=== PATIENT | male | born 1985 | race Caucasian/White ===

== ENCOUNTER 2016-09-22 02:29 | Emergency (ER) | payer OTHER ==
[2016-09-22 02:48] VITALS: BP 127/85
[2016-09-22] MEDS ORDERED: SULFAMETHOXAZOLE/TRIMETHOPRIM 800-160 MG TABLET PO ONE (03:13)
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
== END 2016-09-22 04:00 | disposition home or self-care (01) ==
LOC: ER 02:29
DX: M25.531 Pain in right wrist (principal); L53.9 Erythematous condition, unspecified; Z98.890 Other specified postprocedural states; Z87.892 Personal history of anaphylaxis; Z88.0 Allergy status to penicillin; Z88.1 Allergy status to other antibiotic agents
CPT/HCPCS: 99283

== ENCOUNTER 2016-10-11 05:37 | Day surgery (SDC) | payer OTHER ==
[~2016-10-11 05:37] MED LIST: CLINDAMYCIN 600 MG/D5W RTU 600 MG/50 ML RTUPB IV PRN; LACTATED RINGERS 1000 ML IV PRN; LIDOCAINE 0.5% INJ-PF (5 MG/ML) 50 ML SDV SUBCUT PRN
[2016-10-11] MEDS ORDERED: FENTANYL CITRATE INJ/PF 250 MCG/5 ML AMPULE ONE (06:44)
[2016-10-11] MEDS ORDERED: MIDAZOLAM 2 MG/2 ML INJ ONE (06:44)
[2016-10-11] MEDS ORDERED: DEXMEDETOMIDINE INJ 80 MCG/20 ML VIAL IV ONE (06:45)
[2016-10-11] MEDS ORDERED: PROPOFOL INJ 200 MG/20 ML VIAL IV ONE (06:45)
[2016-10-11] MEDS ORDERED: LIDOCAINE 1% INJ-PF (10 MG/ML) 30 ML SDV ONE (07:23)
[2016-10-11] MEDS ORDERED: MORPHINE SULFATE 10 MG/ML INJ IV PRN ×2 (07:34→08:22)
[2016-10-11] MEDS ORDERED: MEPERIDINE HCL/PF INJ 25 MG/1 ML DISP.SYRIN IV PRN (07:34)
[2016-10-11] MEDS ORDERED: PROMETHAZINE HCL INJ 25 MG/1 ML VIAL IV PRN ×2 (07:34)
[2016-10-11] MEDS ORDERED: FENTANYL CITRATE INJ/PF 100 MCG/2 ML AMPUL IV PRN ×3 (07:34)
[2016-10-11] MEDS ORDERED: OXYCODONE-ACETAMINOPHEN 5-325 MG TABLET PO PRN ×2 (07:34)
[2016-10-11] MEDS ORDERED: DIPHENHYDRAMINE HCL 50 MG/ML VIAL IV PRN (07:34)
[2016-10-11] MEDS ORDERED: ONDANSETRON HCL INJ/PF 4 MG/2 ML SDV IV PRN (08:22)
[2016-10-11] MEDS ORDERED: HYDROCODONE/ACETAMINOPHEN 5-325 MG TABLET PO PRN (08:22)
--- NOTE | 2016-10-11 08:23 | PDOC DISCHARGE SUMMARY ---
Discharge Summary (SDC) - Discharge Final Diagnosis: Left Wrist Midcarpal Instability Date of Surgery: 10/11/16 Discharge Date: 10/11/16 Condition: Good Treatment or Instructions: Schedule Follow Up w/ Dr. Munir Irvin @ [facility] for Surgery to be seen in 10-14 days or as scheduled [place]: [place]: [place]: Keep splint clean/dry/intact. Ice and elevate May begin wrist and finger range of motion attempting to make full fist. Stool softener of choice when on pain medication. Prescriptions: Hydrocodone/Acetaminophen [[place] 5-325 mg Tablet] 1 tab PO Q6 PRN #20 tablet PRN Reason: Discharge Diet: As Tolerated Respiratory Treatments at Home: Deep Breathing/Coughing Discharge Activity: No Lifting Over 10 Pounds, No Lifting/Push/Pulling Report the Following to Your Physician Immediately: Fever over 101 Degrees, Unusual Bleeding, Redness, Swelling, Warmth, Increased Soreness, Numbness, Tingling Sensation
--- NOTE | 2016-10-11 08:24 | Operative Report ---
Operative Report DATE OF SURGERY: 10/11/16 PREOPERATIVE DIAGNOSIS: Retained hardware left wrist POSTOPERATIVE DIAGNOSIS: Same OPERATION: Removal hardware left wrist SURGEON: BECKY CABA ANESTHESIA: LMAC COMPLICATIONS: None ESTIMATED BLOOD LOSS: Minimal PROCEDURE: Indication for above procedure 31-year-old male who presented to my office with scapholunate tear along with midcarpal instability. Patient had attempted conservative measures be discussed treatment options including operative versus nonoperative intervention. Patient ultimately underwent wrist capsulodesis with percutaneous pinning. At this point patient has shown healing and thus the pins had been retained the appropriate amount time and we discussed proceeding with pin removal. Risks and benefits were explained patient verbalized understanding consented for the procedure. Procedure In Detail: Patient was seen and evaluated in the preoperative holding area. The upper extremity was initialized and marked. Patient received 2g of Ancef IV for bacterial prophylaxis. Patient was taken back to the operative room where transferred to the operative table and placed under MAC anesthesia. Once they were adequately anesthetized a surgical team debriefing was performed ensuring all instrumentation was available, the surgical procedure was discussed with possible concerns reviewed. A local block was performed utilizing 5 mL of 1% lidocaine without epinephrine. The upper extremity was prepped with chlorhexidine and alcohol and draped in a sterile fashion. A timeout was done identifying correct patient, procedure and extremity everyone in attendance agree with this and verbalized no concerns. The extremity was exsanguinated the tourniquet and a forearm tourniquet was placed. A small incision was made along the radial aspect of the wrist at the level of the 3 inercarpal pins. Under C-arm fluoroscopy the pins were removed in their entirety. Examination under fluoroscopy demonstrated maintained alignment without catchup clunk at the metacarpal level with ulnar deviation. Tourniquet was removed. A small venous bleeder was identified and tied off proximally and distally. The wound was then closed with interrupted 4-0 nylon. Wound was dressed with Xeroform 4 x 4's and a soft dressing. Sponge counts, instrument counts, needle counts counts were correct. Patient was then awoken from anesthesia. Transferred from the operating room table to the operating room stretcher. There was no intraoperative complications patient tolerated procedure well stable to PACU. Postoperative plan: Patient will begin occupational therapy with gentle range of motion progressing to strengthening as symptoms tolerate.
[2016-10-11] MEDS ORDERED: LORAZEPAM INJ 2 MG/1 ML VIAL ONE (08:39)
[2016-10-11 11:07] VITALS: BP 114/75
[2016-10-11] MEDS ORDERED: LIDOCAINE 2% INJ-PF (20 MG/ML) 10 ML AMPUL ONE (12:39)
[2016-10-11] MEDS ORDERED: GLYCOPYRROLATE INJ 0.4 MG/2 ML VIAL ONE (12:39)
== END 2016-10-11 10:55 | disposition home or self-care (01) ==
LOC: OROUT 05:37
PROVIDERS: ATTEND Orthopaedic Surgery
PROC: 0RPP04Z Removal of Internal Fixation Device from Left Wrist Joint, Open Approach (ICD-10-PCS; principal; 2016-10-11 07:15)
DX: Z47.2 Encounter for removal of internal fixation device (principal); S63.512A Sprain of carpal joint of left wrist, initial encounter; X58.XXXA Exposure to other specified factors, initial encounter; F41.9 Anxiety disorder, unspecified; F32.9 Major depressive disorder, single episode, unspecified; Z79.899 Other long term (current) drug therapy
CPT/HCPCS: 73100; 20680; J2250; J3010; J3490 ×3; J2060; J2704; 01830

== ENCOUNTER 2018-06-04 04:01 | Emergency (ER) | payer OTHER ==
[2018-06-04] MEDS ORDERED: DEXAMETHASONE SOD PHOS INJ 10 MG/1 ML VIAL IV ONE (04:52)
[2018-06-04] MEDS ORDERED: METOCLOPRAMIDE HCL INJ/PF 10 MG/2 ML SDV IV ONE (04:52)
[2018-06-04] MEDS ORDERED: DIPHENHYDRAMINE HCL 50 MG/ML VIAL IV ONE (04:52)
[2018-06-04] MEDS ORDERED: NORMAL SALINE 1000 ML 1,000 ML IV ONE (04:52)
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
[2018-06-04] MEDS ORDERED: DIPHENHYDRAMINE HCL 50 MG/ML VIAL ONE (05:07)
[2018-06-04] MEDS ORDERED: KETOROLAC TROMETHAMINE INJ/PF 30 MG/1 ML SDV IV ONE (05:40)
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
[2018-06-04 06:51] VITALS: BP 148/84
== END 2018-06-04 06:51 | disposition home or self-care (01) ==
LOC: ER 04:01
DX: R51 Headache (principal); H53.149 Visual discomfort, unspecified; R11.0 Nausea; Z87.820 Personal history of traumatic brain injury; Z86.69 Personal history of other diseases of the nervous system and sense organs
CPT/HCPCS: 99284; 96361; 96374; 96375; J1200; J1885; J2765; J7030; J1100